=== PATIENT | female | born 1940 | race Caucasian/White ===

== ENCOUNTER → 2017-04-21 | Outpatient (CLI) | payer MEDICARE, OTHER ==
[~2017-04-21] MED LIST: ALENDRONATE SOD70 MG PO; ASA325 MG PO; CENTRUM SILVER1 EAC1 PO; COMPAZINE10 MG PO; FLEXERIL-DPS10 MG PO; LISINOPRIL-HCT1 EAC1 PO; MIRALAX PACKET17 GM PO; MOBIC DPS7.5 MG PO; PRILOSEC DPS20 MG PO; SENOKOT S1 TAB PO; TIMOPTIC 0.5% DP5 ML OS; TRUSOPT 2% DPS10 ML OS; TYLENOL EXTRA500 M1 PO; ULTRAM DPS50 MG PO; XALATAN2.5 ML OU; ZOCOR DPS40 MG PO; ZOFRAN4 MG PO
== END | disposition home or self-care (01) ==
LOC: PTH.S 09:00
DX: Z01.818 Encounter for other preprocedural examination (principal); I10 Essential (primary) hypertension; Z79.899 Other long term (current) drug therapy

== ENCOUNTER 2017-05-06 05:26 | Inpatient (IN) | payer MEDICARE, OTHER ==
[~2017-05-06] VITALS: Ht 157.5 cm; Wt 76.7 kg
--- NOTE | ~2017-05-06 | OR ---
ADMIT: 05/06/2017 RM/LOC: W.Tl [facility] MR#: [id number] [facility]#: [id number] [address] [address] [place] [address] Operative/Delivery Room Report SEX: F AGE: 77 : 1940 SURGERY DATE: 05/06/2017 SURGEON: Ashwin Johnston MD PORCELAIN WAXER: Aldo Neely PA-C. PREOPERATIVE DIAGNOSIS: Left knee degenerative joint disease. POSTOPERATIVE DIAGNOSIS: Left knee degenerative joint disease. OPERATION: 1. Left knee degenerative joint disease. 2. Intra-articular block. ANESTHESIA: Spinal. COMPLICATIONS: None. ESTIMATED BLOOD LOSS: 100 mL. TOTAL TOURNIQUET TIME: 41 minutes. COMPONENTS: 1. A 6 lugged Attune femoral component. 2. A size 5 Attune tibial component. 3. A 6 mm posterior stabilized insert. 4. A 38 oval patellar button. 5. Scott SpeedSet cement. DESCRIPTION OF OPERATION: The patient was taken to the operating room and the correct extremity was identified. The patient received a spinal anesthetic. The left lower extremity was prepped and draped in a standard fashion. The leg was exsanguinated and tourniquet inflated. An anterior incision was made and dissection was carried through the subcutaneous tissue. A medial parapatellar arthrotomy was performed. An appropriate medial release was performed. The patella was subluxed laterally. The infrapatellar fat pad was partially excised for exposure. At that point, the distal femur was opened up with a drill. We cut 10 mm off the distal femur in 5 degrees of valgus using an intramedullary guide. We then cut the tibia perpendicular to its long axis taking it flush with the affected side with an extramedullary guide. We then sized the femur to a size 6 and pinned this in appropriate external rotation aligning it with the epicondylar axis. We then made anterior, posterior, and chamfer cuts with the 4-in-1 cutting block. We opened up the joint space and removed the remaining posterior osteophytes, meniscus, and PCL ligament. We made our box cut centralizing the femoral component. The tibia was subluxed anteriorly, fit for a size 5 modular tibial tray, punched and drilled in appropriate external rotation. We then removed the remaining tibial osteophytes. We then cut the patella perpendicular to its long axis taking it flush with the lateral facet and fit it for a 38 mm oval patellar button ADMIT: 05/06/2017 RM/LOC: W.01 [facility] MR#: [id number] [address] [place] [id number] [address] [place] [address] Operative/Delivery Room Report SEX: F AGE: 77 : 1940 restoring patellar height. We then extended the knee and opened the joint space to obtain posterior hemostasis and perform a posterior Exparel block. We then put in trial components with a 6 mm insert. At that point, we had full extension, full flexion, patella tracked centrally and no lateral release was required. The knee was also stable to varus and valgus stress testing. All trial components were removed and all the bony surfaces were Waterpik'd clean. We then cemented the tibia, femur, and patella in a standard fashion, put in the trial 6 mm insert and held the knee in extension. While the cement hardened, we completed our intra-articular Exparel block. Once the cement was hard, we deflated the tourniquet, obtained hemostasis, irrigated out. The wound thoroughly, removed the trial insert and put in the real insert. The knee was again found to be stable with full range of motion. No Hemovac drain was used. At that point, the extensor mechanism was closed with an interrupted 0-Vicryl suture with the knee in flexion. The subcutaneous tissue was closed 2-0 Vicryl and reagan were placed in the skin. Mepilex Border dressing was then applied. The patient was taken to the recovery room in stable condition with no complications. Ashwin Johnston MD/ mitra JOB #: [id number] CC: Ashwin Johnston, Attending Physician Yvonne Espinal, Family Physician
[2017-05-09] MEDS ORDERED: ZOCOR DPS40 MG PO (16:02)
[2017-05-09] MEDS ORDERED: PRILOSEC DPS20 MG PO (16:02)
[2017-05-09] MEDS ORDERED: MOBIC DPS7.5 MG PO (16:02)
[2017-05-09] MEDS ORDERED: LISINOPRIL-HCT1 EAC1 PO (16:02)
[2017-05-09] MEDS ORDERED: XALATAN2.5 ML OU (16:03)
[2017-05-09] MEDS ORDERED: TRUSOPT 2% DPS10 ML OS (16:03)
[2017-05-09] MEDS ORDERED: TIMOPTIC 0.5% DP5 ML OS (16:03)
[2017-05-09] MEDS ORDERED: MIRALAX PACKET17 GM PO (16:04)
[2017-05-09] MEDS ORDERED: ASA325 MG PO (16:04)
[2017-05-09] MEDS ORDERED: CENTRUM SILVER1 EAC1 PO (16:04)
[2017-05-09] MEDS ORDERED: ALENDRONATE SOD70 MG PO (16:04)
[2017-05-09] MEDS ORDERED: TYLENOL EXTRA500 M1 PO (16:04)
[2017-05-09] MEDS ORDERED: ZOFRAN4 MG PO (16:05)
[2017-05-09] MEDS ORDERED: ULTRAM DPS50 MG PO (16:05)
[2017-05-09] MEDS ORDERED: COMPAZINE10 MG PO (16:05)
[2017-05-09] MEDS ORDERED: SENOKOT S1 TAB PO (16:05)
[2017-05-09] MEDS ORDERED: FLEXERIL-DPS10 MG PO (16:06)
--- NOTE | 2017-05-16 07:45 | HP ---
ADMIT: 05/06/2017 RM/LOC: [facility] MR#: [id number] [address] [address] [place], [place] [address] Pre-OP History and Physical SEX: F AGE: 77 : 1940 DATE OF SERVICE: CHIEF COMPLAINT: Left knee pain. HISTORY OF PRESENT ILLNESS: The patient is a 77-year-old female, long- standing history of left knee pain. Left knee pain limits her activity. She has failed conservative care, now being admitted for left total knee arthroplasty. PAST MEDICAL HISTORY: Includes hypertension and osteoporosis. PAST SURGICAL HISTORY: Knee arthroscopy and carpal tunnel release. MEDICATIONS: Include: 1. Aspirin. 2. Meloxicam. 3. Omeprazole. 4. Alendronate. 5. Simvastatin. ALLERGIES: SULFA, POLYMYXIN, NEOMYCIN, LORTAB, BACITRACIN, AND TYLENOL. SOCIAL HISTORY: She denies any significant tobacco or alcohol use. REVIEW OF SYSTEMS: Negative. PHYSICAL EXAMINATION: GENERAL: Healthy-appearing female. MUSCULOSKELETAL: She has a varus deformity to both knees. Crepitus on the left more than right. Pain around the medial joint line. Range of motion 5 to 110 degrees. No pain in legs. Legs neurovascularly intact. DIAGNOSTIC DATA: X-rays AP, lateral, PA flexion view shows advanced left knee arthritis. No joint space remaining. IMPRESSION: Advanced left knee degenerative disease. PLAN: We talked about different options. She has failed conservative care. Plan on doing a left total knee arthroplasty. She is aware of the risks, benefits, and options and agreed to proceed. She has been seen and cleared from a medical standpoint. Ashwin Johnston MD/ mitra JOB #: [id number] CC: Ashwin Johnston, Attending Physician UNKNOWN, Family Physician
--- NOTE | 2017-05-19 08:29 | CO ---
ADMIT: 05/06/2017 RM/LOC: [address] [facility] MR#: [id number] [address] [address] [place], [place] [address] Consultation SEX: F AGE: 77 : 1940 DATE OF CONSULTATION: 05/07/2017 ATTENDING PHYSICIAN: Ashwin Johnston CONSULTING PHYSICIAN: Yvonne Espinal MD REASON FOR CONSULT: Medical management following her left knee replacement. HOSPITAL COURSE: The patient was admitted on May 06, 2017, for a planned left total knee arthroplasty. I had visited with her preoperatively for medical clearance. At that time, we had recommended DVT prophylaxis with full dose aspirin. Her surgery was performed without any apparent complications. She was transferred up to the medical floor yesterday evening and I was asked to consult for continued medical management. The patient reports that since arrival to the floor and since initiating the scheduled doses of Ultram and Tylenol, she has had increased nausea with episodes of vomiting. She has been able to tolerate some food this morning, but still rates her nausea 1 or 2/10. Her other chronic medical history and medical problems including high blood pressure, high cholesterol, glaucoma, osteoporosis, and GERD have been well controlled with her home medications and those have been resumed with her hospitalization. She has no other concerns. PAST MEDICAL HISTORY: 1. Gastroesophageal reflux disease. 2. Osteoarthritis. 3. Hypertension. 4. Hyperlipidemia. 5. Glaucoma. 6. Osteoporosis. HOME MEDICATIONS: 1. Omeprazole 40 mg daily. 2. Meloxicam 7.5 mg twice daily (this is on hold during her hospitalization). 3. Lisinopril 20/12.5 mg daily. 4. Simvastatin 40 mg daily. 5. Alendronate 70 mg weekly. 6. Multivitamin daily. 7. Aspirin 81 mg daily, but this has been changed during this hospitalization to 325 mg daily. 8. Tylenol p.r.n. 9. Timolol b.i.d. to left eye. 10.Dorzolamide eye drop to left eye twice daily. 11.Latanoprost at bedtime to both eyes. The patient has also been on routine scheduled medications for her postoperative arthroplasty and these include tramadol 50 mg q.6 hours and meloxicam 15 mg daily. She also has oxycodone IR p.r.n. ALLERGIES: PER HISTORY AND PHYSICAL, THE PATIENT HAS ALLERGIES TO SULFA, ADMIT: 05/06/2017 RM/LOC: [address] [facility] MR#: [id number] [address] [address] [place] [address] [place] [address] Consultation SEX: F AGE: 77 : 1940 POLYMYXIN, NEOMYCIN, LORTAB, AND BACITRACIN. SOCIAL HISTORY: She is a nonsmoker, nondrinker. FAMILY HISTORY: Noncontributory. REVIEW OF SYSTEMS: As per HPI. Others reviewed and negative. PHYSICAL EXAMINATION: VITAL SIGNS: Currently a temperature of 98.4, pulse 67, respiratory rate 12, blood pressure 148/62, oxygen saturation 99% on room air. GENERAL: The patient is awake, alert, no acute distress. She is seated in the chair in her exam room. She is oriented x3. HEART: Regular rate and rhythm. No murmurs. LUNGS: Clear to auscultation bilaterally. No crackles or wheezes. ABDOMEN: Soft, nontender, and nondistended. Normal bowel sounds. EXTREMITIES: Warm and dry. Left anterior knee with dressing in place. Trace pretibial edema bilaterally. NEUROLOGIC: Cranial nerves II through XII grossly intact. No focal neurologic deficit appreciated. ASSESSMENT/PLAN: 1. Postoperative day #1, status post left total knee arthroplasty. We will continue with routine orthopedic cares. 2. Nausea likely secondary to scheduled tramadol. We will discontinue the tramadol and use the previously ordered medications including Tylenol, meloxicam, and oxycodone for pain. She may continue with current antiemetics including Zofran and Compazine as needed. 3. Her other chronic medical issues are stable. We will continue her home medications. DISPOSITION: Patient plans for discharge tomorrow if continues to do well and able to tolerate oral diet. Yvonne Espinal MD/ mitra JOB #: [id number] CC: Ashwin Johnston, Attending Physician Yvonne Espinal, Family Physician
--- NOTE | 2017-06-13 14:18 | DS ---
ADMIT: 05/06/2017 RM/LOC: 523 [facility] MR#: [id number] [address] [address] [place] [address] General Discharge Summary SEX: F AGE: 77 : 1940 ADMISSION DATE: 05/06/2017 DISCHARGE DATE: 05/08/2017 REASON FOR ADMISSION: Elective left total knee arthroplasty after failing conservative management for osteoarthritis. PREOPERATIVE DIAGNOSIS: Left knee degenerative joint disease. POSTOPERATIVE DIAGNOSIS: Left knee degenerative joint disease. PROCEDURE PERFORMED: Left total knee arthroplasty. ANESTHETIC: Spinal. COMPLICATIONS: None. BLOOD LOSS: 100 mL. SURGEON: Ashwin Johnston MD. BINDERY LEADPERSON: Aldo Neely PA-C ACTIVE MEDICAL PROBLEMS: Osteoarthritis, hypertension, osteoporosis, GERD, hyperlipidemia, and glaucoma. HOSPITAL COURSE: Dacia was admitted on 05/06/2017 for elective left total knee arthroplasty, was completed successfully by Dr. Johnston. There were no complications. Postoperatively, she did well with pain control with use of intraoperative pain cocktail as well as oral analgesics. She participated well with physical therapy. She did have some nausea associated with her pain medications so she discontinued her tramadol scheduled p.r.n. Her nausea then improved after discontinuation of that. By postop day #2, she was stable and ready for discharge with plans for outpatient therapy. Hemoglobin dropped to 11.5, but remained hemodynamically stable, did not require transfusion. DISCHARGE MEDICATIONS: 1. Omeprazole 40 mg daily. 2. Hydrochlorothiazide/lisinopril 12.5/20 daily. 3. Meloxicam 7.5 mg b.i.d. 4. Simvastatin 20 mg daily. 5. Timolol 0.5% eyedrops b.i.d. 6. Dorzolamide 2% drops to left eye twice daily. 7. Latanoprost 0.005% drop both eyes daily. 8. Alendronate 70 mg daily. 9. Multivitamin daily. ADMIT: 05/06/2017 RM/LOC: 523 [facility] MR#: [id number] [address] [address] [place] [address] General Discharge Summary SEX: F AGE: 77 : 1940 10.Aspirin 325 mg daily. 11.Tylenol 1000 mg q.8 p.r.n. 12.MiraLAX p.r.n. 13.Senokot b.i.d. p.r.n. 14.Compazine 10 mg q.6 p.r.n. 15.Zofran 4 mg q.4 p.r.n. 16.Tramadol 50 mg, 1 to 2 q.6 p.r.n. 17.Flexeril 10 mg t.i.d. p.r.n. DISCHARGE INSTRUCTIONS: Dacia will undergo outpatient therapy per total knee arthroplasty protocol. Follow up in the orthopedic office in 2 weeks for wound check, 6 weeks with x-rays. Follow up primary care as directed. Aldo Neely PA-C / Ashwin Johnston MD / mitra JOB #: [id number] CC: Ashwin Johnston MD, Attending Physician Yvonne Espinal MD, Family Physician
== END 2017-05-08 17:25 | disposition home or self-care (01) | DRG 470 ==
LOC: 5MS 05:26 → WOR 05:26 → 5MS 08:47
PROVIDERS: ADMIT Orthopaedic Surgery
PROC: 0SRD0J9 Replacement of Left Knee Joint with Synthetic Substitute, Cemented, Open Approach (ICD-10-PCS; principal; 2017-05-06)
DX: M17.12 Unilateral primary osteoarthritis, left knee (principal); I10 Essential (primary) hypertension; M81.0 Age-related osteoporosis without current pathological fracture; E78.5 Hyperlipidemia, unspecified; H40.9 Unspecified glaucoma; K21.9 Gastro-esophageal reflux disease without esophagitis; Z79.82 Long term (current) use of aspirin